=== PATIENT | male | born 1955 | race Caucasian/White ===

== ENCOUNTER → 2023-08-23 | Day surgery (SDC) | payer MEDICARE ==
[2023-08-22 09:00] LABS: BASOPHILS # (AUTO) 0.1 (0.0-0.1); BASOPHILS % 1.6 % (0.0-1.0); EOSINOPHILS # (AUTO) 0.2 (0.0-0.4); EOSINOPHILS % 3.3 % (0.0-6.0); HEMATOCRIT 39.4 % (38.2-49.6); HEMOGLOBIN 13.9 g/dL (14.0-18.0); LYMPHOCYTES # (AUTO) 1.1 (1.0-3.2); LYMPHOCYTES % 16.8 % (18.0-39.1); MEAN CORPUSCULAR HEMOGLOBIN 31.2 pg (28-32); MEAN CORPUSCULAR HGB CONC 35.3 g/dL (31-35); MEAN CORPUSCULAR VOLUME 88.3 fL (81-99); MONOCYTES # (AUTO) 0.6 (0.2-0.8); MONOCYTES % 9.9 % (4.4-11.3); NEUTROPHILS # (AUTO) 4.4 (2.1-6.9); NEUTROPHILS % 68.1 % (38.7-80.0); PLATELET COUNT 210 x10e3/uL (140-360); RED BLOOD COUNT 4.46 x10e6/uL (4.3-5.7); RED CELL DISTRIBUTION WIDTH 12.7 % (11.7-14.4); WHITE BLOOD COUNT 6.44 x10e3/uL (4.8-10.8)
[2023-08-22 09:33] LABS: ANION GAP 11.8 mmol/L (8-16); CALCIUM 9.4 mg/dL (8.4-10.2); CREATININE, SERUM 1.05 mg/dL (0.72-1.25); POTASSIUM 4.8 mmol/L (3.5-5.1)
[~2023-08-23] MED LIST: ATORVASTATIN CA20 MG PO; Acetaminophen/Codeine 300-30MG PO; CEFUROXIME250 MG PO; CIPRO500 MG PO; DIGOXIN125 MCG PO; ELIQUIS5 MG PO; FENTANYL CITRATE/PF 100MCG/2 ML INJ ONE; FLOMAX0.4 MG PO; IOPAMIDOL 610MG/1ML 300 MG/ML VIAL IV ONE; KETOROLAC TROME10 MG PO; LIDOCAINE HCL 2% LOCAL INJ 5 ML SDV VIAL INJ ONE; LISINOPRIL10 MG PO; MAG-OXIDE400 MG PO; METFORMIN HCL500 M1 PO; METOPROLOL SUCC50 MG PO; METOPROLOL TART50 MG PO; ONDANSETRON HCL INJ 2MG/ML 2ML 2 MG/ML VIAL ONE; ONDANSETRON ODT4 MG SL; OZEMPIC2 MG/0.75 SQ; PRINIVIL2.5 MG; PROPOFOL IV EMULSION 10 MG/ML 20 ML VIAL ONE; PYRIDIUM100 MG PO; SEVOFLURANE INHAL SOLN 250 ML PEN BTL ONE; STOOL SOFTENER50 MG PO; ULTRAM 50MG50 MG PO; VESICARE10 MG PO; VITAMIN B-121000 MC2 PO; VITAMIN D350 MCG PO; WARFARIN SODIUM5 MG PO; Z.0.COUMADIN5 MG; Z.0.METOPROLOL SUCC2
[2023-08-23] MEDS: GENTAMICIN 80MG/NS 100 ML 100 ML IV ONE (06:11)
[2023-08-23] MEDS: CEFTRIAXONE 1 GM VIAL ONE (06:11)
[2023-08-23] MEDS: LACTATED RINGER'S 1,000 ML ONE (06:11)
[2023-08-23] MEDS: PHENAZOPYRIDINE HCL 100 MG TAB ONE (08:38)
[2023-08-23 09:30] VITALS: BP 163/91; PULSE 60; RESP 18; O2SAT 95
== END | disposition home or self-care (01) ==
LOC: OR 05:23
PROVIDERS: ATTEND Urology
DX: N20.0 Calculus of kidney (principal); N13.30 Unspecified hydronephrosis; Z46.6 Encounter for fitting and adjustment of urinary device; N40.1 Benign prostatic hyperplasia with lower urinary tract symptoms; N13.8 Other obstructive and reflux uropathy; N28.89 Other specified disorders of kidney and ureter; I10 Essential (primary) hypertension; I48.91 Unspecified atrial fibrillation; E78.5 Hyperlipidemia, unspecified; E11.9 Type 2 diabetes mellitus without complications; Z01.812 Encounter for preprocedural laboratory examination; Z01.818 Encounter for other preprocedural examination; Z79.84 Long term (current) use of oral hypoglycemic drugs; Z79.85 Long-term (current) use of injectable non-insulin antidiabetic drugs; Z79.899 Other long term (current) drug therapy
CPT/HCPCS: 36415 ×2; 52332; 52352; 71046; 74018; 74420; 80048; 82948; 84550; 85025; 88300; C1766; C1769; C2617; J0696; J1580; J2001; J2405; J2704; J3010; J7121; Q9967